=== PATIENT | male | born 1970 | race Caucasian/White ===

== ENCOUNTER 2017-07-13 08:24 | Emergency (ER) | payer OTHER ==
[~2017-07-13] VITALS: Ht 167.6 cm; Wt 88.5 kg
[~2017-07-13 08:24] MED LIST: BACTRIM DS TAB1 EACH PO; CELEBREX 200 M200 M1 PO; CENTRUM SILVER1 EAC4 PO; CLARITIN10 MG PO; DULOXETINE HCL60 MG PO; FLOMAX0.4 MG PO; IBUPROFEN 800800 MG PO; LISINOPRIL2.5 MG PO; METFORMIN HCL500 MG PO; NORCO 5-325 TA1 EACH PO; OXYCODONE HCL15 MG PO; PERCOCET PO; PHENAZOPYRIDIN200 M2 PO; VIAGRA100 MG PO; ZOCOR 10 MG TAB10 MG PO
[2017-07-13] MEDS ORDERED: ADIPEX-P37.5 MG PO (08:31)
[2017-07-13 09:08] LABS: URINE BILIRUBIN NEGATIVE (Negative); URINE BLOOD 2+ (Negative); URINE CLARITY CLEAR; URINE COLOR YELLOW; URINE GLUCOSE-RANDOM NEGATIVE (Negative); URINE KETONES NEGATIVE (Negative); URINE LEUKOCYTES-REFLEX NEGATIVE (Negative); URINE NITRITE-REFLEX NEGATIVE (Negative); URINE PROTEIN 2+ (Negative); URINE SPECIFIC GRAVITY >= 1.030 (1.005-1.030); URINE UROBILINOGEN 0.2 E.U./dl (0.2-1.0)
[2017-07-13 09:18] LABS: BACTERIA-REFLEX 1-9 Few /HPF (None Seen); CASTS None Seen /LPF (None Seen); CRYSTALS None Seen /LPF (None Seen); MUCUS None Seen strn/LPF (None Seen); SQUAMOUS 0-3 Few /LPF (0-3); URINE RBC 3-10 Few /HPF (0-2); URINE WBC-REFLEX 0-5 Rare /HPF (0-5)
[2017-07-13 09:24] LABS: ABSOLUTE EOSINOPHILS 0.1 thou/uL (0.0-0.7); ABSOLUTE LYMPHOCYTES 1.2 thou/uL (0.8-5.3); ABSOLUTE MONOCYTES 0.5 thou/uL (0.0-1.2); ABSOLUTE NEUTROPHILS 6.5 thou/uL (1.6-8.1); BASOPHILS 0.3 %; EOSINOPHILS 1.3 %; HEMATOCRIT 45.5 % (42.0-52.0); LYMPHOCYTES 14.3 %; MCHC 35.2 g/dL (28.0-37.0); MCV 93.7 fL (80.0-100.0); MONOCYTES 6.3 %; MPV 8.8 fl. (7.2-11.1); NUCLEATED RBCS 0 /100WBC; PLATELET COUNT* 169 thou/uL (150-400); POLYS 77.8 %; RBC 4.85 mil/uL (4.50-6.00); RDW-CV 12.7 % (10.5-14.5); WBC 8.3 thou/uL (4.0-11.0)
[2017-07-13 09:42] LABS: CREATININE 1.5 mg/dL (0.6-1.3); POTASSIUM 3.7 mmol/L (3.5-5.1)
[2017-07-13 09:45] LABS: ALBUMIN 4.2 g/dL (3.4-5.0); TOTAL BILIRUBIN 1.6 mg/dL (<0.1-1.0); TOTAL PROTEIN 7.2 g/dL (6.4-8.2)
[2017-07-13] MEDS ORDERED: IBUPROFEN 800800 MG PO (11:31)
[2017-07-13] MEDS ORDERED: FLOMAX0.4 MG PO (11:31)
[2017-07-13 11:44] VITALS: BP 110/70
== END 2017-07-13 11:46 | disposition home or self-care (01) ==
LOC: M.ERS 08:24
PROVIDERS: Personal Emergency Response Attendant
DX: N20.0 Calculus of kidney (principal); M19.90 Unspecified osteoarthritis, unspecified site; E11.9 Type 2 diabetes mellitus without complications; F17.210 Nicotine dependence, cigarettes, uncomplicated

== ENCOUNTER → 2018-08-31 | Outpatient (CLI) | payer OTHER ==
[~2018-08-31] MED LIST changes: +ADIPEX-P37.5 MG PO
== END ==
LOC: M.ULTRA 07:30
DX: N13.30 Unspecified hydronephrosis (principal); I12.9 Hypertensive chronic kidney disease with stage 1 through stage 4 chronic kidney disease, or unspecified chronic kidney disease; E11.22 Type 2 diabetes mellitus with diabetic chronic kidney disease; N18.3 Chronic kidney disease, stage 3 (moderate); E78.5 Hyperlipidemia, unspecified; Z87.442 Personal history of urinary calculi

== ENCOUNTER 2019-12-24 20:26 | Emergency (ER) | payer OTHER ==
[~2019-12-24] VITALS: Ht 167.6 cm; Wt 95.3 kg
[2019-12-24] MEDS ORDERED: CIALIS5 MG PO (20:37)
[2019-12-24 21:10] LABS: URINE BILIRUBIN NEGATIVE (Negative); URINE BLOOD 3+ (Negative); URINE CLARITY CLEAR; URINE COLOR YELLOW; URINE GLUCOSE-RANDOM 2+ (Negative); URINE KETONES TRACE (Negative); URINE LEUKOCYTES-REFLEX NEGATIVE (Negative); URINE NITRITE-REFLEX NEGATIVE (Negative); URINE PROTEIN NEGATIVE (Negative); URINE SPECIFIC GRAVITY >= 1.030 (1.005-1.030); URINE UROBILINOGEN 0.2 E.U./dl (0.2-1.0)
[2019-12-24 21:10] LABS: HEMATOCRIT 43.4 % (42.0-52.0); HEMOGLOBIN 15.5 gm/dL (14.0-18.0); MCH 33.2 pg (26.0-34.0); MCHC 35.6 g/dL (28.0-37.0); MCV 93.4 fL (80.0-100.0); MPV 9.7 fl. (7.2-11.1); NUCLEATED RBCS 0 /100WBC; PLATELET COUNT* 158 thou/uL (150-400); RBC 4.65 mil/uL (4.50-6.00)
[2019-12-24 21:15] LABS: SQUAMOUS 0-3 Few /LPF (0-3); URINE RBC >20 Many /HPF (0-2); URINE WBC-REFLEX 0-5 Rare /HPF (0-5)
[2019-12-24 21:16] LABS: BACTERIA-REFLEX 1-9 Few /HPF (None Seen); CASTS None Seen /LPF (None Seen); CRYSTALS None Seen /LPF (None Seen); MUCUS 0-3 Light strn/LPF (None Seen)
[2019-12-24 21:24] LABS: INR 1.1; PROTIME 11.1 Seconds (9.20-11.50)
[2019-12-24 21:36] LABS: ABSOLUTE LYMPHOCYTES 0.8 thou/uL (0.8-5.3); ABSOLUTE NEUTROPHILS 10.2 thou/uL (1.6-8.1); PLATELET ESTIMATE ADEQUATE
[2019-12-24 21:38] LABS: CALCIUM 8.8 mg/dL (8.5-10.1); CREATININE 1.1 mg/dL (0.6-1.3); POTASSIUM 3.8 mmol/L (3.5-5.1)
[2019-12-24 21:43] LABS: ALBUMIN 4.1 g/dL (3.4-5.0); TOTAL BILIRUBIN 0.6 mg/dL (<0.1-1.0); TOTAL PROTEIN 6.9 g/dL (6.4-8.2)
[2019-12-24] MEDS ORDERED: TAMSULOSIN HCL0.4 MG PO (23:12)
[2019-12-24] MEDS ORDERED: ZOFRAN ODT4 MG PO (23:12)
[2019-12-24] MEDS ORDERED: HYDROCODON-ACE1 EAC7 PO (23:12)
[2019-12-24 23:17] VITALS: BP 105/65
--- NOTE | 2019-12-25 09:58 | EKG ---
[place] [address] ELECTROCARDIOGRAM REPORT Name: ERIS CROWLEY Room: [facility]#: [id number] Admission: 12/24/19 Attend Phys: Discharge: 12/24/19 Date of : 68 Date of Service: 12/24/192036 Report #: [id number] THIS REPORT FOR: //name// [facility] ED Test Date: 2019-12-24 Test Time: 20:37:14 Pat Name: ERIS CROWLEY Department: Room: Gender: Solar Manager: [facility] : 1970 Requested By: Denise Hopkins Order Number: [id number] MD: Heber Johnson Measurements Intervals [place] Rate: 57 P: -17 RI: 177 QRS: 49 QRSD: 96 T: 57 QT: 401 QTc: 391 Interpretive Statements Sinus arrhythmia Borderline low voltage, extremity leads Baseline wander in lead(s) II No previous ECG available for comparison Electronically Signed On 12-25-2019 9:58:45 CDT by Heber Johnson [email or web address] <ELECTRONICALLY SIGNED> By: Heber Johnson MD, [facility] 12/25/19 0958 36 36 Heber Johnson MD, [facility] /EPI
== END 2019-12-24 23:24 | disposition home or self-care (01) ==
LOC: M.ERS 20:26
PROVIDERS: Personal Emergency Response Attendant
DX: N23 Unspecified renal colic (principal); M19.90 Unspecified osteoarthritis, unspecified site; E11.9 Type 2 diabetes mellitus without complications; F17.210 Nicotine dependence, cigarettes, uncomplicated; Z87.442 Personal history of urinary calculi

== ENCOUNTER 2020-11-11 12:34 | Emergency (ER) | payer OTHER ==
[~2020-11-11] VITALS: Ht 167.6 cm; Wt 95.3 kg
[~2020-11-11 12:34] MED LIST changes: +CIALIS5 MG PO; +HYDROCODON-ACE1 EAC7 PO; +TAMSULOSIN HCL0.4 MG PO; +ZOFRAN ODT4 MG PO
[2020-11-11 13:55] LABS: HEMATOCRIT 45.7 % (42.0-52.0); HEMOGLOBIN 16.2 gm/dL (14.0-18.0); MCH 33.3 pg (26.0-34.0); MCHC 35.3 g/dL (28.0-37.0); MCV 94.3 fL (80.0-100.0); NUCLEATED RBCS 0 /100WBC; PLATELET COUNT* 178 thou/uL (150-400); RBC 4.85 mil/uL (4.50-6.00); WBC 12.3 thou/uL (4.0-11.0)
[2020-11-11 14:03] LABS: CALCIUM 8.5 mg/dL (8.5-10.1); POTASSIUM 4.9 mmol/L (3.5-5.1)
[2020-11-11 14:08] LABS: ALBUMIN 4.1 g/dL (3.4-5.0); TOTAL BILIRUBIN 0.7 mg/dL (<0.1-1.0); TOTAL PROTEIN 7.4 g/dL (6.4-8.2)
[2020-11-11 14:16] LABS: ABSOLUTE MONOCYTES 0.4 thou/uL (0.0-1.2); ABSOLUTE NEUTROPHILS 10.9 thou/uL (1.6-8.1); ATYPICAL LYMPHS 2 %; PLATELET ESTIMATE ADEQUATE
[2020-11-11 14:18] LABS: URINE BILIRUBIN NEGATIVE (Negative); URINE BLOOD 3+ (Negative); URINE CLARITY CLEAR; URINE COLOR YELLOW; URINE GLUCOSE-RANDOM 2+ (Negative); URINE KETONES NEGATIVE (Negative); URINE LEUKOCYTES-REFLEX NEGATIVE (Negative); URINE NITRITE-REFLEX NEGATIVE (Negative); URINE PROTEIN NEGATIVE (Negative); URINE SPECIFIC GRAVITY >= 1.030 (1.005-1.030); URINE UROBILINOGEN 0.2 E.U./dl (0.2-1.0)
[2020-11-11 14:25] LABS: SQUAMOUS 0-3 Few /LPF (0-3)
[2020-11-11 14:26] LABS: BACTERIA-REFLEX None Seen /HPF (None Seen); CASTS None Seen /LPF (None Seen); CRYSTALS None Seen /LPF (None Seen); MUCUS 0-3 Light strn/LPF (None Seen); URINE RBC >20 Many /HPF (0-2); URINE WBC-REFLEX None Seen /HPF (0-5)
[2020-11-11] MEDS ORDERED: ZOFRAN ODT4 MG DISSOLVE (15:08)
[2020-11-11] MEDS ORDERED: FLOMAX0.4 MG PO (15:08)
[2020-11-11] MEDS ORDERED: PERCOCET PO (15:08)
[2020-11-11 15:16] VITALS: BP 115/65
== END 2020-11-11 15:17 | disposition home or self-care (01) ==
LOC: M.ERS 12:34
PROVIDERS: Nurse Practitioner Family
DX: N20.1 Calculus of ureter (principal); E11.9 Type 2 diabetes mellitus without complications; M19.90 Unspecified osteoarthritis, unspecified site; F17.210 Nicotine dependence, cigarettes, uncomplicated; Z87.442 Personal history of urinary calculi